=== PATIENT | female | born 1945 | race Caucasian/White ===

== ENCOUNTER → 2019-07-08 15:35 | Outpatient (CLI) | payer OTHER, SELFPAY ==
--- NOTE | 2019-07-08 | DI.RAD.S_ITS ---
PROCEDURE: XR LUMBAR SPINE 2-3V INDICATIONS: LUMBAR SPLINE TECHNIQUE: 3 views of the lumbar spine were acquired. COMPARISON: None. FINDINGS: Bones: Straightening of the normal lordotic curvature. Multilevel degenerative endplate sclerosis and spurring. Diffuse facet arthropathy. Moderate narrowing of the L4-L5 and L5-S1 disc spaces. Scattered vascular calcifications seen in the aorta. Mild levocurvature centered at the L4 level. Soft tissues: Overlying bowel gas pattern is normal. No suspicious soft tissue calcifications. IMPRESSION: Multilevel lumbar spondylosis most pronounced at L4-L5 and L5-S1. Diffuse facet arthropathy. Mild levocurvature Dictated by: Nigel Springer M.D. on 07/08/2019 at 17:01 Approved by: Nigel Springer M.D. on 07/08/2019 at 17:02
== END ==
PROVIDERS: PCP Family Medicine; Visit Provider Family Medicine
DX: M54.9 Dorsalgia, unspecified (principal); M47.816 Spondylosis without myelopathy or radiculopathy, lumbar region; M47.817 Spondylosis without myelopathy or radiculopathy, lumbosacral region
CPT/HCPCS: 72100

== ENCOUNTER → 2020-04-25 08:04 | Outpatient (CLI) | payer OTHER, SELFPAY ==
--- NOTE | 2020-04-25 | DI.MRI.S_ITS ---
PROCEDURE: MR LUMBAR SPINE WO CON INDICATIONS: INTERVERTEBRA DEGENERATION TECHNIQUE: Noncontrast sagittal T1 spin echo and T2 fast echo, sagittal STIR, axial T1 and T2 fast spin echo through the lumbar spine. In cases with scoliosis, additional coronal T2 fast spin echo may be performed. COMPARISON: [facility], CR, XR LUMBAR SPINE 2-3V, 07/08/2019, 15:40. FINDINGS: Image quality: Excellent. Alignment and Curvature: Trace degenerative retrolisthesis of L5 on S1. Trace degenerative anterolisthesis of L2 on L3. Bone Marrow: Marrow is of normal overall signal. No acute vertebral body compression fractures. Spinal Cord: Conus medullaris terminates at the L1-L2 level. Visualized cord demonstrates normal signal and size. Paraspinous Soft Tissues: No paravertebral masses. T12-L1: Mild facet hypertrophy. No canal stenosis or foraminal stenosis. L1-L2: Minimal central posterior disc protrusion. Facet and ligament hypertrophy. No significant canal stenosis. No foraminal stenosis. L2-L3: Minimal degenerative anterolisthesis of L2 on L3. Mild disc bulge. Facet and ligament hypertrophy. Mild canal stenosis. No significant foraminal stenosis. L3-L4: Moderate central posterior disc protrusion indenting on the ventral aspect of the thecal sac. Facet and ligament hypertrophy. Moderate resultant canal stenosis. No significant foraminal stenosis. L4-L5: Moderate chronic disc height loss. Mild diffuse disc bulge. Facet and ligament hypertrophy. Moderate canal stenosis. Right foraminal disc protrusion contributes to moderate to severe right foraminal narrowing and impingement on the exiting right L4 nerve root. Left foraminal disc bulge. Mild left foraminal narrowing. L5-S1: Mild left posterior lateral disc protrusion impinges on the left S1 nerve root in the left lateral recess. There is severe right foraminal narrowing with right L5 nerve root impingement. Left foraminal disc bulge plus left facet hypertrophy results in severe left foraminal narrowing with impingement on the exiting left L5 nerve root. IMPRESSION: 1. Mild canal stenosis at L2-L3. 2. Central posterior disc protrusion at L3-L4 contributes to moderate canal stenosis. 3. At L4-L5, there is moderate canal stenosis. There is right foraminal disc protrusion. There is moderate to severe right foraminal narrowing with right L4 nerve root impingement. 4. At L5-S1, a mild left posterior lateral disc protrusion impinges on the left S1 nerve root in the left lateral recess. There is severe bilateral foraminal narrowing impinging on the exiting bilateral L5 nerve roots. Dictated by: Ang Swain M.D. on 04/25/2020 at 10:44 Approved by: Ang Swain M.D. on 04/25/2020 at 10:52
== END ==
PROVIDERS: PCP Family Medicine; Referring Provider Family Medicine; Visit Provider Family Medicine
DX: M51.36 Other intervertebral disc degeneration, lumbar region (principal); M51.26 Other intervertebral disc displacement, lumbar region; M51.27 Other intervertebral disc displacement, lumbosacral region; M48.061 Spinal stenosis, lumbar region without neurogenic claudication; M48.07 Spinal stenosis, lumbosacral region
CPT/HCPCS: 72148